=== PATIENT | female | born 1990 | race Two or more races ===

== ENCOUNTER → 2017-11-24 | Outpatient (REF) | payer OTHER ==
[2017-11-24 22:36] LABS: CHLAMYDIA DNA AMPLIFICATION NEGATIVE (NEGATIVE); GC DNA AMPLIFICATION NEGATIVE (NEGATIVE)
== END ==
LOC: M SFHCLERA 13:53
DX: R10.2 Pelvic and perineal pain (principal)

== ENCOUNTER → 2018-01-01 | Outpatient (REF) | payer OTHER | LOC: M SFHCLERA 17:19 | DX: N93.9 Abnormal uterine and vaginal bleeding, unspecified (principal) ==

== ENCOUNTER → 2018-02-01 | Outpatient (CLI) | payer OTHER ==
[2018-02-01 18:30] LABS: HEMATOCRIT 37.5 % (36.0-47.0); HEMOGLOBIN 12.1 g/dl (12.0-15.5); MEAN CORPUSCULAR HEMOGLOBIN 26.3 pg (27.0-33.0); MEAN CORPUSCULAR HGB CONC 32.3 g/dl (32.0-36.5); MEAN CORPUSCULAR VOLUME 81.5 fl (80.0-96.0); PLATELET COUNT, AUTOMATED 314 10^3/uL (150-450); RED CELL DISTRIBUTION WIDTH 13.2 % (11.5-14.5); WHITE BLOOD COUNT 6.8 10^3/uL (4.0-10.0)
== END ==
LOC: M SMT 15:19
DX: N93.9 Abnormal uterine and vaginal bleeding, unspecified (principal); Z13.79 Encounter for other screening for genetic and chromosomal anomalies; Z80.3 Family history of malignant neoplasm of breast; Z80.49 Family history of malignant neoplasm of other genital organs; Z80.8 Family history of malignant neoplasm of other organs or systems; Z80.42 Family history of malignant neoplasm of prostate
CPT/HCPCS: 84443

== ENCOUNTER → 2018-02-05 | Outpatient (CLI) | payer OTHER | LOC: M RAD 17:07 | DX: N93.9 Abnormal uterine and vaginal bleeding, unspecified (principal) | CPT/HCPCS: 76856 ==

== ENCOUNTER → 2018-03-29 | Outpatient (REF) | payer OTHER | LOC: M LAB REF 17:17 | DX: Z12.4 Encounter for screening for malignant neoplasm of cervix (principal) ==